=== PATIENT | male | born 1990 | race African-American/Black ===

== ENCOUNTER 2017-11-03 18:08 | Emergency (ER) | payer OTHER ==
[2017-11-03] MEDS: IBUPROFEN 800 MG TAB PO (18:45)
== END 2017-11-03 19:11 | disposition home or self-care (01) ==
LOC: M ED 18:08
DX: S80.11XA Contusion of right lower leg, initial encounter (principal); S93.401A Sprain of unspecified ligament of right ankle, initial encounter; X50.1XXA Overexertion from prolonged static or awkward postures, initial encounter; Y92.830 Public park as the place of occurrence of the external cause; Y93.61 Activity, american tackle football; Y99.9 Unspecified external cause status
CPT/HCPCS: 73590